=== PATIENT | male | born 1950 | race Caucasian/White ===

== ENCOUNTER 2016-10-06 20:20 | Emergency (ER) | payer MEDICARE ==
[2016-10-06] MEDS ORDERED: IOPAMIDOL 370 (76%) 100 ML VIAL IV ONE (20:21)
[2016-10-06] MEDS ORDERED: HYDROMORPHONE HCL 0.5 MG/0.5 ML SYRINGE ONE (22:47)
[2016-10-06] MEDS ORDERED: ONDANSETRON 4 MG/2ML 2 ML VIAL ONE (22:47)
[2016-10-06 22:53] LABS: BASO # 0.1 K/mm3 (0.0-0.2); EOS # 0.6 (0.0-0.5); EOS % 5.8 % (0.9-2.9); HEMATOCRIT 37.6 % (32.0-52.0); HEMOGLOBIN 12.9 gm/l (14.0-18.0); IMM NEUT% 0.3 % (0-1); LYMPH # 2.2 (1.0-4.8); LYMPH % 22.6 % (15-45); MEAN CELL VOLUME 87.4 fl (80.0-94.0); MEAN CORPUSCULAR HGB CONC 34.3 g/dl (33.0-37.0); MEAN PLATELET VOLUME 9.2 fl (7.4-10.4); MONO # 0.8 (0.0-0.8); MONO % 8.2 % (4-12); NEUT % 62.1 % (43-75); PLATELET COUNT 224 K/mm3 (130-400)
[2016-10-06 23:02] LABS: ALB/GLOB RATIO 1.4 (>1.0); ALBUMIN 3.9 gm/dL (3.5-5.7); CALCIUM 9.3 mg/dL (8.6-10.3)
--- NOTE | 2016-10-07 08:12 | CT ---
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 Prior to and following administration of 80 cc Isovue 370 intravenous contrast contiguous axial images acquired from skull base to vertex. Three-dimensional rotational volume rendered reformatted images were reconstructed and a dedicated workstation and reviewed separately, in addition to the source images. COMPARISON:None. BRAIN VOLUME:Grossly unremarkable for patient age. VENTRICULAR SIZE:No gross ventriculomegaly. FOCAL MASS EFFECT:Along the resection site at the right cerebellopontine angle there is focal convexity along the right cerebellar hemisphere; it is difficult to exclude the presence of a recurrent mass lesion given an ovoid focus measuring 1.9 x 1.5 x 0.9 cm in size.. WHITE MATTER: Minor hypoattenuation at the right centrum semiovale which may be postischemic in nature. ACUTE INTRACRANIAL HEMORRHAGE:None. POSTPROCEDURAL CHANGE: Evidence of right-sided translabyrinthine temporal bone resection and fatty graft placement. Suggested minor malacic changes of the right cerebellar hemisphere. CALVARIUM: Postsurgical change. VISIBLE PARANASAL SINUSES AND MASTOID AIR CELLS: Mucosal thickening of the left maxillary sinus, incompletely depicted. ORBITS: Dystrophic scleral calcifications. POSTERIOR CIRCULATION: Dominant right vertebral artery, high riding left P1 segment. No high-grade stenosis or occlusion.. ANTERIOR CIRCULATION: Moderate stenosis of the left supraclinoid internal carotid artery. No occlusive lesion. POST CONTRAST IMAGING: No dominant focal enhancing lesion identified. SACCULAR ANEURYSM: none identified. IMPRESSION: 1. No gross mass effect, ventriculomegaly, or acute intracranial hemorrhage. 2. Postsurgical change status post right-sided temporal bone resection. Fullness of soft tissues along the resection bed, recommend eventual postcontrast MRI to further exclude recurrent mass lesion. 3. 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 No high-grade stenosis, occlusion, or dominant saccular aneurysm. No abnormally enhancing lesions. Preliminary report relayed to the Emergency Medicine medical service by Dr. Whitehead on 10/07/2016 at 0057 hours. Findings also discussed with Dr. Rios on 10/07/2016 at 0807 hours.
== END 2016-10-07 01:38 | disposition home or self-care (01) ==
LOC: ED 20:20
DX: R51 Headache (principal); I10 Essential (primary) hypertension
CPT/HCPCS: 85025; 80053; 70450; 70496; 96375; 99284 ×2; 96374; J2405; Q9967; J1170